=== PATIENT | female | born 1970 | race Caucasian/White ===

== ENCOUNTER 2016-12-24 06:48 | Day surgery (SDC) | payer BC ==
[2016-12-24] MEDS ORDERED: BUPIVACAINE 0.5% W/EPI MPF 30 ML VIAL IVP ONE (10:43)
[2016-12-24] MEDS ORDERED: BUPIVACAINE 0.25% MPF 30ML VIAL IVP ONE (10:43)
[2016-12-24] MEDS ORDERED: LIDOCAINE 1% W/EPI 1:200,000 MPF 30ML SQ ONE (10:43)
[2016-12-24] MEDS ORDERED: DEXAMETHASONE PRESERVATIVE FREE 10MG/ML VIAL IV ONE (10:43)
[2016-12-24] MEDS ORDERED: FENTANYL PF 100MCG/2ML VIAL IV ONE ×2 (14:00)
[2016-12-24] MEDS ORDERED: LIDOCAINE 2% MDV (20MG/ML) 20ML VIAL IV ONE (14:00)
[2016-12-24] MEDS ORDERED: ONDANSETRON HCL IV 4 MG/2 ML VIAL IVP ONE (14:00)
[2016-12-24] MEDS ORDERED: MIDAZOLAM HCL 2MG/2ML VIAL IV ONE ×2 (14:00)
[2016-12-24] MEDS ORDERED: PROPOFOL 10 MG/ML VIAL IV ONE ×2 (14:00)
[2016-12-24] MEDS ORDERED: MEPERIDINE 50 MG/1 ML VIAL IVP ONE (14:00)
[2016-12-24] MEDS ORDERED: *PACU ONLY* KETAMINE HCL 10 MG/ML (20ML) VIAL IV ONE ×2 (14:00)
--- NOTE | 2016-12-24 15:13 | Operative Note - Ferro ---
DATE OF SURGERY: 12/24/16 PREOPERATIVE DIAGNOSIS: LUMBAR RADICULITIS, ICD-10 CODE = M54.16 AND M54.17. OPERATION: FLUOROSCOPICALLY-GUIDED RIGHT TRANSFORAMINAL SELECTIVE SEGMENTAL INJECTION, L4-5 AND L5-S1. SURGEON: WES LOPEZ D.O. ANESTHESIA: LOCAL SEDATION. ANESTHESIA PROVIDER: CAROLYNE BETANCOURT CRNA. INDICATION: This patient presents with pain, which starts in the back but then extends into the hips and legs, right. Diagnostics show a 4-5 and a 5-1 disc. Current pattern of pain is both 4 and 5. PROCEDURE: Intravenous line, vital sign monitoring, IV sedation, prepped, draped, sterile technique. Lumbar foraminal opening on the right at 4-5 and 5-1 both identified, marked, and infiltrated. Two separate 20-gauge needles one in each foraminal opening. 5 mL of 0.125% Marcaine with Dexamethasone injected. Needle removed. Back cleaned. Topical antibiotics. Sterile dressing applied. We will monitor and evaluate. WES LOPEZ D.O. Date & Time cc: Dr. Joo Silverio JOB NUMBER: [id number] MTDD
== END 2016-12-24 08:35 | disposition home or self-care (01) ==
LOC: SUR 06:48
PROVIDERS: ATTEND Pain Medicine Interventional Pain Medicine
DX: M54.16 Radiculopathy, lumbar region (principal); M54.17 Radiculopathy, lumbosacral region; E11.9 Type 2 diabetes mellitus without complications; Z79.4 Long term (current) use of insulin; Z79.84 Long term (current) use of oral hypoglycemic drugs
CPT/HCPCS: 64483; 64484; 01935; 80048; 83036; 81025; Q9967; J2405; J1100; J3010

== ENCOUNTER 2017-03-04 07:24 | Day surgery (SDC) | payer BC ==
[~2017-03-04 07:24] MED LIST: FAMOTIDINE 20MG TABLET PO ONE; MECLIZINE 25 MG TABLET PO ONE; METOCLOPRAMIDE 10 MG TABLET PO ONE
[2017-03-04] MEDS ORDERED: 0.9 % SODIUM CHLORIDE 100ML BAG IV ONE (13:40)
[2017-03-04] MEDS ORDERED: BUPIVACAINE 0.5% W/EPI MPF 30 ML VIAL IVP ONE (13:40)
[2017-03-04] MEDS ORDERED: LIDOCAINE 1% W/EPI 1:200,000 MPF 30ML SQ ONE (13:40)
[2017-03-04] MEDS ORDERED: DEXAMETHASONE PRESERVATIVE FREE 10MG/ML VIAL IV ONE (13:40)
--- NOTE | 2017-03-04 15:25 | Operative Note - Ferro ---
DATE OF SURGERY: 03/04/17 PREOPERATIVE DIAGNOSIS: INTRACTABLE RADICULITIS, ICD-10 CODE = M54.16 AND 54.17. OPERATION: FLUOROSCOPICALLY-GUIDED BILATERAL TRANSFORAMINAL SELECTIVE SEGMENTAL EPIDURAL INJECTION L5/S1. SURGEON: WES LOPEZ D.O. ANESTHESIA: LOCAL SEDATION. ANESTHESIA PROVIDER: CAROLYNE BETANCOURT CRNA. INDICATION: This patient presents with leg pain. Examination showed tenderness lumbar spine. Range of motion causing pain across both legs. Diagnostics shows a primary 5/1 disc. PROCEDURE: Intravenous line, vital sign monitoring, IV sedation, prepped, draped, sterile technique. Under imaging, lumbar foraminal opening at 5/1 identified and marked bilaterally. Skin infiltrated. Two separate 20-gauge needles one at each foraminal opening. 5 mL of 0.125% Marcaine with Dexamethasone injected. Needle removed, back cleaned, topical antibiotic, and sterile dressing applied. We will monitor and evaluate. cc: Dr. Joo Silverio JOB NUMBER: [id number] MTDD
[2017-03-04] MEDS ORDERED: MIDAZOLAM HCL 2MG/2ML VIAL IV ONE (15:32)
[2017-03-04] MEDS ORDERED: FENTANYL PF 100MCG/2ML VIAL IV ONE (15:32)
[2017-03-04] MEDS ORDERED: PROPOFOL 10 MG/ML VIAL IV ONE (15:32)
[2017-03-04] MEDS ORDERED: LIDOCAINE 2% MDV (20MG/ML) 20ML VIAL IV ONE (15:32)
== END 2017-03-04 09:35 | disposition home or self-care (01) ==
LOC: SUR 07:24
PROVIDERS: ATTEND Pain Medicine Interventional Pain Medicine
DX: M54.16 Radiculopathy, lumbar region (principal); M54.17 Radiculopathy, lumbosacral region; E11.9 Type 2 diabetes mellitus without complications; Z79.84 Long term (current) use of oral hypoglycemic drugs; Z79.4 Long term (current) use of insulin
CPT/HCPCS: 64483; 01935; 36416; 82948; 81025; Q9967; J1100; J3010

== ENCOUNTER 2017-07-20 15:53 | Emergency (ER) | payer BC ==
[2017-07-20] MEDS ORDERED: 0.9 % SODIUM CHLORIDE 1,000 ML BAG IV ONE (16:14)
[2017-07-20] MEDS ORDERED: ONDANSETRON HCL IV 4 MG/2 ML VIAL IV ONE (16:14)
[2017-07-20] MEDS ORDERED: KETOROLAC 30 MG/ML VIAL IVP ONE (16:14)
[2017-07-20 16:29] LABS: BASO % 0.3 % (0-6); EOS % 2.1 % (0-6); GRAN % 45.6 % (47-80); HEMATOCRIT 40.1 % (35.0-47.0); HEMOGLOBIN 13.2 gm/dl (11.6-16.0); MEAN CELL VOLUME 88.1 fl (81-97); MEAN CORPUSCULAR HGB CONC 32.9 g/dl (32-36); MEAN PLATELET VOLUME 9.2 fl (7.4-10.4); PLATELET COUNT 435 K/uL (130-400); RED BLOOD COUNT 4.55 M/uL (3.80-5.40); RED CELL DISTRIBUTION WIDTH 12.2 % (11.5-14.5); WHITE BLOOD COUNT W/O DIFF 9.9 K/uL (4.2-12.2)
[2017-07-20 16:50] LABS: ALB/GLOB RATIO 1.2 (1.1-1.8); ALKALINE PHOSPHATASE 200 U/L (35-104); ALT/SGPT 30 U/L (<33); AST/SGOT 25 U/L (10.0-35.0); BLOOD UREA NITROGEN 13 mg/dL (6-20); CREATININE 0.5 mg/dL (0.5-0.9); EST GLOMERULAR FILTRATION RATE > 60 mL/min; GLUCOSE,RANDOM 362 mg/dL (74-109); LIPASE 26 U/L (13-60); TOTAL PROTEIN 7.3 g/dL (6.6-8.7)
[2017-07-20 17:36] LABS: URINE APPEARANCE CLEAR; URINE BILIRUBIN NEGATIVE (NEGATIVE); URINE BLOOD NEGATIVE (NEGATIVE); URINE COLOR YELLOW; URINE KETONE NEGATIVE (NEGATIVE); URINE LEUKOCYTE ESTERASE NEGATIVE (NEGATIVE); URINE NITRITE NEGATIVE (NEGATIVE); URINE PROTEIN NEGATIVE (NEGATIVE); URINE UROBILINOGEN 0.2 E.U./dL (0.20 - 1.00)
[2017-07-20 17:37] LABS: URINE GLUCOSE (UA) >=1000 mg/dL (NEGATIVE)
--- NOTE | 2017-07-20 17:43 | Emergency Department Record ---
History of Present Illness - General Chief Complaint: Back Pain/Injury Stated Complaint: LRQ BACK PAIN Time Seen by Provider: 07/20/17 16:08 Source: Patient Limitations: No limitations - History of Present Illness Initial Comments: pt has had r flank pain for 4 days which is getting progressively worse. Complaint: Other Onset/Timin -: Days(s) Similar Symptoms Previously: No Place: Home Radiation: None Severity: Moderate Severity scale (1-10): 3 Quality: Aching, Sharp, Stabbing Consistency: Constant, Intermittent Improves With: None Worsens With: None Context: Unknown Associated Symptoms: Denies other symptoms - Related Data Home Medications Medication Instructions Recorded Confirmed Last Taken Gabapentin [Neurontin] 300 mg PO BID 07/20/17 07/20/17 07/20/17 Hydrocodone/Acetaminophen [[place] 2 each PO QID 07/20/17 07/20/17 07/20/17 10-325 Tablet] Hydromorphone HCl [Dilaudid] 2 mg PO BID 07/20/17 07/20/17 07/20/17 Liraglutide [Victoza 2-Osmar] 0.6 mg SQ QHS 07/20/17 07/20/17 07/19/17 Metformin HCl [Metformin HCl] 1,000 mg PO BID 07/20/17 07/20/17 07/20/17 Allergies Allergy/AdvReac Type Severity Reaction Status Date / Time metronidazole [From Flagyl] Allergy Intermediate RASH Verified 07/20/17 16:06 NSAIDS (Non-Steroidal AdvReac Severe ABDOMINAL Verified 07/20/17 16:06 Anti-Inflamma PAIN Travel Screening - Travel/Exposure Within Last 30 Days Have you traveled within the last 30 days?: No Review of Systems Reviewed: No additional complaints except as noted below Constitutional: Reports: As per HPI. Denies: Chills, Fever, Malaise, Night sweats, Weakness, Weight change Eyes: Reports: As per HPI. Denies: Eye discharge, Eye pain, Photophobia, Vision change ENT: Reports: As per HPI. Denies: Congestion, Dental pain, Ear pain, Epistaxis , Hearing loss, Throat pain Respiratory: Reports: As per HPI. Denies: Cough, Dyspnea, Hemoptysis, Stridor, Wheezes Cardiovascular: Reports: As per HPI. Denies: Arrhythmia, Chest pain, Dyspnea on exertion, Edema, Murmurs, Orthopnea, Palpitations, Paroxysmal nocturnal dyspnea, Rheumatic Fever, Syncope Endocrine: Reports: As per HPI. Denies: Fatigue, Heat or cold intolerance, Polydipsia, Polyuria Gastrointestinal: Reports: As per HPI. Denies: Abdominal pain, Constipation, Diarrhea, Hematemesis, Hematochezia, Melena, Nausea, Vomiting Genitourinary: Reports: As per HPI. Denies: Abnormal menses, Discharge, Dyspareunia, Dysuria, Frequency, Hematuria, Incontinence, Retention, Urgency Musculoskeletal: Reports: As per HPI. Denies: Arthralgia, Back pain, Gout, Joint swelling, Myalgia, Neck pain Skin: Reports: As per HPI. Denies: Bruising, Change in color, Change in hair/ nails, Lesions, Pruritus, Rash Neurological: Reports: As per HPI. Denies: Abnormal gait, Confusion, Headache, Numbness, Paresthesias, Seizure, Tingling, Tremors, Vertigo, Weakness Psychiatric: Reports: As per HPI. Denies: Anxiety, Auditory hallucinations, Depression, Homicidal thoughts, Suicidal thoughts, Visual hallucinations Hematological/Lymphatic: Reports: As per HPI. Denies: Anemia, Blood Clots, Easy bleeding, Easy bruising, Swollen glands Past Medical History - SOCIAL HISTORY Smoking Status: Never smoker Alcohol Use: None Drug Use: None - RESPIRATORY Hx Respiratory Disorders: Yes Hx Pneumonia: Yes ( CHILD) - CARDIOVASCULAR Hx Cardio Disorders: No - NEURO Hx Neuro Disorders: No - GI Hx GI Disorders: Yes Hx Reflux: Yes - Hx Genitourinary Disorders: No - ENDOCRINE Hx Endocrine Disorders: Yes Hx Diabetes: Yes Comment:: DOES NOT CHECK BLOOD SUGARS - MUSCULOSKELETAL Hx Musculoskeletal Disorders: Yes Hx Arthritis: Yes (SPINE) Hx Fibromyalgia: Yes (MAY HAVE FIBROMYALGIA) - PSYCH Hx Psych Problems: No - HEMATOLOGY/ONCOLOGY Hx Hematology/Oncology Disorders: No Family Medical History Any Significant Family History?: Yes Hx Anxiety: Brother/Sister *Anxiety Comment: SISTER Hx Diabetes: Brother/Sister *Diabetes Comment: BROTHER & SISTER Physical Exam - General General Appearance: Alert, Oriented x3, Cooperative, Mild distress - Head Head exam: Normal inspection - Eye Eye exam: Normal appearance, PERRL, EOMI Pupils: Normal accommodation - ENT ENT exam: Normal exam, Mucous membranes moist, Normal external ear exam, Normal orophraynx Ear exam: Normal external inspection. negative: External canal tenderness Nasal Exam: Normal inspection. negative: Discharge, Sinus tenderness Mouth exam: Normal external inspection, Tongue normal Teeth exam: Normal inspection. negative: Dental caries Throat exam: Normal inspection. negative: Tonsillar erythema, Tonsillar exudate - Neck Neck exam: Normal inspection, Full ROM. negative: Tenderness - Respiratory Respiratory exam: Normal lung sounds bilaterally. negative: Respiratory distress - Cardiovascular Cardiovascular Exam: Regular rate, Normal rhythm, Normal heart sounds - GI/Abdominal GI/Abdominal exam: Soft, Normal bowel sounds. negative: Tenderness - Rectal Rectal exam: Deferred - exam: Deferred - Extremities Extremities exam: Normal inspection, Full ROM, Normal capillary refill. negative: Tenderness - Back Back exam: Reports: Normal inspection, CVA tenderness (R), Full ROM. Denies: Muscle spasm, Rash noted, Tenderness - Neurological Neurological exam: Alert, CN II-XII intact, Normal gait, Oriented X3 - Psychiatric Psychiatric exam: Normal affect, Normal mood - Skin Skin exam: Dry, Intact, Normal color, Warm Course Vital Signs 07/20/17 16:01 Temperature 97.7 F Pulse Rate 101 H Respiratory 20 Rate Blood Pressure 133/74 Pulse Ox 96 Medical Decision Making - Lab Data Result diagrams: 07/20/17 16:23 07/20/17 16:23 Lab Results 07/20/17 07/20/17 07/20/17 Range/Units 16:23 16:23 17:25 WBC 9.9 (4.2-12.2) K/uL RBC 4.55 (3.80-5.40) M/uL Hgb 13.2 (11.6-16.0) gm/dl Hct 40.1 (35.0-47.0) % MCV 88.1 (81-97) fl MCH 29.0 (27-33) pg MCHC 32.9 (32-36) g/dl RDW 12.2 (11.5-14.5) % Plt Count 435 H (130-400) K/uL MPV 9.2 (7.4-10.4) fl Gran % 45.6 L (47-80) % Lymphocytes % 46.0 H (16-45) % Monocytes % 6.0 (0-9) % Eosinophils % 2.1 (0-6) % Basophils % 0.3 (0-6) % Sodium 133 L (136-145) mmol/L Potassium 3.6 (3.4-4.5) mmol/L Chloride 94 L (98-107) mmol/L Carbon Dioxide 25.0 (22-29) mmol/L Anion Gap 14.0 (7-16) BUN 13 (6-20) mg/dL Creatinine 0.5 (0.5-0.9) mg/dL Estimated GFR > 60 mL/min Random Glucose 362 H (74-109) mg/dL Calcium 9.2 (8.6-10.0) mg/dL Total Bilirubin 0.30 (0.2-1.0) mg/dL AST 25 (10.0-35.0) U/L ALT 30 (<33) U/L Alkaline Phosphatase 200 H (35-104) U/L Total Protein 7.3 (6.6-8.7) g/dL Albumin 4.0 (4.0-5.0) g/dL Globulin 3.3 (1.4-4.8) gm/dL Albumin/Globulin Ratio 1.2 (1.1-1.8) Lipase 26 (13-60) U/L Urine Color Yellow Urine Appearance Clear Urine pH 5.0 (5.0-8.0) Ur Specific [place] 1.025 (1.002-1.030) Urine Protein Negative (NEGATIVE) Urine Glucose (UA) >=1000 mg/dl H (NEGATIVE) Urine Ketones Negative (NEGATIVE) Urine Blood Negative (NEGATIVE) Urine Nitrite Negative (NEGATIVE) Urine Bilirubin Negative (NEGATIVE) Urine Urobilinogen 0.2 (0.20 - 1.00) E.U./dL Ur Leukocyte Esterase Negative (NEGATIVE) Disposition Disposition: Discharge Clinical Impression: Flank pain, Hyperglycemia Disposition: Home, Self-Care Condition: (1) Good Instructions: Flank Pain (ED) Additional Instructions: follow up with family doctor tomorrow. return sooner if worse. monitor blood sugars Forms: Patient Portal Access Quality - Quality Measures Quality Measures: N/A - Blood Pressure Screening Does Patient Have Any of the Following: No Blood Pressure Classification: Pre-Hypertensive BP Reading Systolic Measurement: 133 Diastolic Measurement: 74 Screening for High Blood Pressure: < Pre-Hypertensive BP, F/U Documented > [ G8950] Pre-Hypertensive Follow-up Interventions: Follow-up with rescreen every year.
--- NOTE | 2017-07-21 10:04 | CT SCAN REPORT ---
EXAM: CT OF THE ABDOMEN AND PELVIS WITHOUT CONTRAST HISTORY: RIGHT LOWER ABDOMEN/FLANK PAIN FOR APPROXIMATELY FOUR DAYS. TECHNIQUE: Thin collimation helical CT examination of the abdomen and pelvis was performed without oral or intravenous contrast administration for the express purpose of evaluating the renal collecting systems for obstructing calculi. Lack of oral and IV contrast utilization limits evaluation of the bowel and solid viscera respectively. Comparison: CT of the abdomen without and with contrast dated 02/16/12. FINDINGS: There is minimal linear scarring versus atelectasis in the anterior lung bases. The visualized lung bases are otherwise clear and there is no pleural or pericardial effusion. The heart is not enlarged. The liver is mildly decreased in density relative to the spleen consistent with steatosis. No suspicious focal hepatic lesion is, however, identified. The gallbladder is surgically absent and no biliary ductal dilatation is seen. The pancreas, spleen, adrenal glands, and kidneys are normal in appearance. No intraabdominal nor retroperitoneal lymphadenopathy is seen. No definite pelvic mass. No lymphadenopathy. No free pelvic fluid. The uterus is in the midline. No intrinsic urinary bladder abnormality is identified. There is no evidence of obstructive uropathy. The urinary bladder lumen appears slightly increased in density measuring 31 Hounsfield units as does the proximal renal collecting systems. Correlate with urinalysis for the presence of blood. This may just relate to concentrated urine. No gross bowel dilatation nor bowel wall thickening is seen. The appendix is surgically absent. The vasculature as visualized is unremarkable. No lytic or blastic bone lesion is seen. There are degenerative changes scattered throughout the visualized spine. IMPRESSION: 1. NO EVIDENCE OF NEPHROLITHIASIS NOR OBSTRUCTIVE UROPATHY. THE URINARY BLADDER LUMEN AND PROXIMAL RENAL COLLECTING SYSTEMS APPEAR SLIGHTLY INCREASED IN DENSITY. CORRELATE WITH URINALYSIS TO EXCLUDE HEMATURIA. THIS MAY JUST RELATE TO CONCENTRATED URINE. 2. NO CONVINCING CT EVIDENCE OF AN ACUTE INTRAABDOMINAL NOR INTRAPELVIC PROCESS. 3. STATUS POST CHOLECYSTECTOMY AND APPENDECTOMY. 4. HEPATIC STEATOSIS. JOB NUMBER: [id number] AND [id number] [facility]
== END 2017-07-20 18:27 | disposition home or self-care (01) ==
LOC: ER 15:53
DX: M54.5 Low back pain (principal); E11.65 Type 2 diabetes mellitus with hyperglycemia; Z79.84 Long term (current) use of oral hypoglycemic drugs
CPT/HCPCS: 36416; 74176; 80053; 81003; 82948; 83690; 85025; 96361; 96374; 96375; 99284; J1885; J2405; J7030

== ENCOUNTER 2018-12-24 10:05 | Day surgery (SDC) | payer BC ==
[2018-12-24] MEDS ORDERED: MIDAZOLAM HCL 2MG/2ML VIAL IV ONE (10:06)
[2018-12-24] MEDS ORDERED: PROPOFOL 10 MG/ML VIAL IV ONE (10:06)
[2018-12-24] MEDS ORDERED: LIDOCAINE 2% MDV (20MG/ML) 20ML VIAL IV ONE (10:06)
--- NOTE | 2018-12-27 09:30 | Operative Note ---
DATE OF SURGERY: 12/24/2018 SURGEON: Laila Martin MD OPERATION: COLONOSCOPY. INDICATIONS: This is a 48-year-old female with average risk for colorectal cancer who presented for screening colonoscopy. POSTOPERATIVE DIAGNOSIS: Grossly normal colon with no neoplasm or ulcerative lesions. ANESTHESIA: Sedation is per Anesthesia. Pulse oximetry was monitored throughout the procedure to maintain O2 saturation of 90% or greater. Supplemental oxygen was administered via nasal cannula. Cardiac and vital signs were monitored throughout the duration of the procedure, and they were stable. The procedure of colonoscopy and risks and alternatives of the procedure, including the risk of bleeding and perforation, among others, were explained to the patient who voiced understanding and agreed to have the procedure done. Physical examination was performed, and the patient was found stable for sedation. PROCEDURE: The patient was placed in the left lateral position. Sedation was initiated. A digital rectal exam was performed and showed some mild external hemorrhoids with no palpable rectal masses. An Olympus PCF-180AL colonoscope was then inserted into the rectum under direct visualization. It was advanced to the cecum without difficulty. The ileocecal valve and appendiceal orifice were identified and photographed. The colonic mucosa was carefully examined upon introduction of the colonoscope. The bowel preparation was suboptimal but enough to rule out any significant lesions. The colonoscope was then withdrawn while carefully examining the colonic mucosal surfaces. No other lesions were noted. In the rectum, retroflexion was performed and grade 1 internal hemorrhoids were noted. The colonoscope was then withdrawn and the procedure was terminated. The patient tolerated the procedure well without any immediate complications. The patient remained with stable vital signs and was transferred to the recovery room. RECOMMENDATIONS: 1. The patient should be on a high-fiber diet. 2. The patient is to have a repeat colonoscopy for screening in 5 years given the suboptimal prep. Thank you for allowing me to participate in the care of your patient. CC: YUMI BLACKMAN MD, FACP [facility]
== END 2018-12-24 12:40 | disposition home or self-care (01) ==
LOC: HOP 10:05
PROVIDERS: ATTEND Internal Medicine Gastroenterology
DX: Z12.11 Encounter for screening for malignant neoplasm of colon (principal); E11.9 Type 2 diabetes mellitus without complications
CPT/HCPCS: 00812; 81025; G0121

== ENCOUNTER 2019-01-05 11:29 | Emergency (ER) | payer BC ==
--- NOTE | 2019-01-05 12:07 | Emergency Department Record ---
History of Present Illness - General Chief Complaint: Abdominal Pain Stated Complaint: LEFT SIDED ABDOMINAL PAIN Time Seen by Provider: 01/05/19 12:01 Mode of Arrival: Ambulatory - History of Present Illness Initial Comments: left sided abdominal pain which started yesterday and nauseated and diarrhea times two 2 days ago ,no vomiting PSH appendectomy and gall bladder and D and c and multiple laproscopes. Chronic low back pain and on narcotics and NSAID causes nausea. Onset/Timin -: Days(s) Location: Q Radiation: None Migration to: No migration Severity: Moderate Severity scale (1-10): 7 Quality: Dull, Sharp Consistency: Constant, Intermittent Improves With: Nothing Worsens With: Movement Associated Symptoms: Denies other symptoms - Related Data Patient : No Home Medications Medication Instructions Recorded Confirmed Last Taken Dulaglutide [Trulicity] 1.5 mg SQ WEEKLY 01/05/19 01/05/19 01/05/19 Eszopiclone 2 mg PO ASDIR 01/05/19 01/05/19 01/05/19 Pregabalin [Lyrica] 50 mg PO TID 01/05/19 01/05/19 01/05/19 Previous Rx's Medication Instructions Recorded Amoxicillin/Potassium Clav 1 each PO TID #30 tablet 01/05/19 [Augmentin 500-125 Tablet] Dicyclomine HCl [Bentyl] 10 mg PO Q8H #30 cap 01/05/19 Allergies Allergy/AdvReac Type Severity Reaction Status Date / Time metronidazole [From Flagyl] Allergy Intermediate RASH Verified 01/05/19 11:47 NSAIDS (Non-Steroidal AdvReac Severe ABDOMINAL Verified 01/05/19 11:47 Anti-Inflamma PAIN Travel Screening - Travel/Exposure Within Last 30 Days Have you traveled within the last 30 days?: No - Travel/Exposure Within Last Year Have you traveled outside the [place] in the last year?: No - Additonal Travel Details Have you been exposed to anyone with a communicable illness?: No - Travel Symptoms Symptom Screening: None Review of Systems Reviewed: No additional complaints except as noted below Constitutional: Reports: As per HPI. Denies: Chills, Fever, Malaise, Night sweats, Weakness, Weight change Eyes: Reports: As per HPI. Denies: Eye discharge, Eye pain, Photophobia, Vision change ENT: Reports: As per HPI. Denies: Congestion, Dental pain, Ear pain, Epistaxis , Hearing loss, Throat pain Respiratory: Reports: As per HPI. Denies: Cough, Dyspnea, Hemoptysis, Stridor, Wheezes Cardiovascular: Reports: As per HPI. Denies: Arrhythmia, Chest pain, Dyspnea on exertion, Edema, Murmurs, Orthopnea, Palpitations, Paroxysmal nocturnal dyspnea, Rheumatic Fever, Syncope Endocrine: Reports: As per HPI. Denies: Fatigue, Heat or cold intolerance, Polydipsia, Polyuria Gastrointestinal: Reports: As per HPI, Abdominal pain. Denies: Constipation, Diarrhea, Hematemesis, Hematochezia, Melena, Nausea, Vomiting Genitourinary: Reports: As per HPI. Denies: Abnormal menses, Discharge, Dyspareunia, Dysuria, Frequency, Hematuria, Incontinence, Retention, Urgency Musculoskeletal: Reports: As per HPI. Denies: Arthralgia, Back pain, Gout, Joint swelling, Myalgia, Neck pain Skin: Reports: As per HPI. Denies: Bruising, Change in color, Change in hair/ nails, Lesions, Pruritus, Rash Neurological: Reports: As per HPI. Denies: Abnormal gait, Confusion, Headache, Numbness, Paresthesias, Seizure, Tingling, Tremors, Vertigo, Weakness Psychiatric: Reports: As per HPI. Denies: Anxiety, Auditory hallucinations, Depression, Homicidal thoughts, Suicidal thoughts, Visual hallucinations Hematological/Lymphatic: Reports: As per HPI. Denies: Anemia, Blood Clots, Easy bleeding, Easy bruising, Swollen glands Past Medical History - SOCIAL HISTORY Smoking Status: Never smoker Alcohol Use: Rare Drug Use: None - RESPIRATORY Hx Respiratory Disorders: Yes Hx Pneumonia: Yes ( CHILD) - CARDIOVASCULAR Hx Cardio Disorders: Yes Hx Palpitations: Yes (fast heartbeat, wore holter monitor and everything was ok) Comment:: . - NEURO Hx Neuro Disorders: Yes Hx of Migraines: Yes - GI Hx GI Disorders: Yes Hx Diverticulitis: Yes Hx Reflux: Yes - Hx Genitourinary Disorders: No Comment:: pre-menopause - ENDOCRINE Hx Endocrine Disorders: Yes Hx Diabetes: Yes Comment:: DOES NOT CHECK BLOOD SUGARS - MUSCULOSKELETAL Hx Musculoskeletal Disorders: Yes Hx Arthritis: Yes (SPINE) Hx Fibromyalgia: Yes (MAY HAVE FIBROMYALGIA) - PSYCH Hx Psych Problems: No - HEMATOLOGY/ONCOLOGY Hx Hematology/Oncology Disorders: Yes Hx Anemia: Yes Family Medical History Any Significant Family History?: Yes Hx Anxiety: Brother/Sister *Anxiety Comment: SISTER Hx Diabetes: Brother/Sister *Diabetes Comment: BROTHER & SISTER Physical Exam - General General Appearance: Alert, Oriented x3, Cooperative, No acute distress - Head Head exam: Normal inspection - Eye Eye exam: Normal appearance, PERRL Pupils: Normal accommodation - ENT ENT exam: Normal exam, Mucous membranes moist, Normal external ear exam, Normal orophraynx, TM's normal bilaterally Ear exam: Normal external inspection. negative: External canal tenderness Nasal Exam: Normal inspection. negative: Discharge, Sinus tenderness Mouth exam: Normal external inspection, Tongue normal Teeth exam: Normal inspection. negative: Dental caries Throat exam: Normal inspection. negative: Tonsillar erythema, Tonsillar exudate - Neck Neck exam: Normal inspection, Full ROM. negative: Tenderness - Respiratory Respiratory exam: Normal lung sounds bilaterally. negative: Respiratory distress - Cardiovascular Cardiovascular Exam: Regular rate, Normal rhythm, Normal heart sounds - GI/Abdominal GI/Abdominal exam: Soft, Normal bowel sounds, Tenderness (left lower quad) - Rectal Rectal exam: Deferred - exam: Deferred - Extremities Extremities exam: Normal inspection, Full ROM, Normal capillary refill. negative: Tenderness - Back Back exam: Reports: Normal inspection, Full ROM. Denies: Muscle spasm, Rash noted, Tenderness - Neurological Neurological exam: Alert, Normal gait, Oriented X3, Reflexes normal - Psychiatric Psychiatric exam: Normal affect, Normal mood - Skin Skin exam: Dry, Intact, Normal color, Warm Course Vital Signs 01/05/19 11:55 Temperature 98.3 F Pulse Rate 84 Respiratory 20 Rate Blood Pressure 134/82 Pulse Ox 98 Medical Decision Making - Data Complexity MDM Data: Labs Ordered and/or Reviewed, X-Ray Ordered and/or Reviewed (CT diverticulosis ) - Lab Data Result diagrams: 01/05/19 11:55 01/05/19 11:55 Disposition Clinical Impression: Diverticulitis Abdominal pain Qualifiers: Abdominal location: left lower quadrant Qualified Code(s): R10.32 - Left lower quadrant pain Disposition: Home, Self-Care Condition: (1) Good Instructions: Diverticulitis (ED) Additional Instructions: low fiber diet follow up with family Dr in one week Dr. Silverio of [facility] take augmentin three times a day Prescriptions: Amoxicillin/Potassium Clav [Augmentin 500-125 Tablet] 1 each PO TID #30 tablet Dicyclomine HCl [Bentyl] 10 mg PO Q8H #30 cap Forms: Patient Portal Access Time of Disposition: 14:54 Quality - Quality Measures Quality Measures: N/A - Blood Pressure Screening Does Patient Have Any of the Following: No Blood Pressure Classification: Pre-Hypertensive BP Reading Systolic Measurement: 134 Diastolic Measurement: 82 Screening for High Blood Pressure: < Pre-Hypertensive BP, F/U Documented > [ G8950] Pre-Hypertensive Follow-up Interventions: Referral to alternative/primary care provider.
[2019-01-05] MEDS: KETOROLAC 30 MG/ML VIAL IVP ONE (12:16)
[2019-01-05] MEDS: 0.9 % SODIUM CHLORIDE 1,000 ML BAG IV ONE (12:17)
[2019-01-05 12:32] LABS: BASO % 0.4 % (0-6); EOS % 1.9 % (0-6); GRAN % 59.4 % (47-80); HEMATOCRIT 42.4 % (35.0-47.0); HEMOGLOBIN 14.1 gm/dl (11.6-16.0); LYMPH % 32.1 % (16-45); MEAN CORPUSCULAR HEMOGLOBIN 29.9 pg (27-33); MEAN CORPUSCULAR HGB CONC 33.3 g/dl (32-36); MEAN PLATELET VOLUME 9.9 fl (7.4-10.4); MONO % 6.2 % (0-9); PLATELET COUNT 467 K/uL (130-400); RED BLOOD COUNT 4.71 M/uL (3.80-5.40); RED CELL DISTRIBUTION WIDTH 12.4 % (11.5-14.5); WHITE BLOOD COUNT W/O DIFF 11.3 K/uL (4.2-12.2)
[2019-01-05 12:33] LABS: URINE APPEARANCE SL CLOUDY; URINE BILIRUBIN NEGATIVE (NEGATIVE); URINE BLOOD NEGATIVE (NEGATIVE); URINE COLOR YELLOW; URINE KETONE TRACE (NEGATIVE); URINE LEUKOCYTE ESTERASE TRACE (NEGATIVE); URINE NITRITE NEGATIVE (NEGATIVE); URINE PROTEIN NEGATIVE (NEGATIVE); URINE UROBILINOGEN 0.2 E.U./dL (0.20 - 1.00)
[2019-01-05 12:47] LABS: URINE RBC NONE SEEN (NONE SEEN); URINE WBC 0 - 2 (0-2/hpf)
[2019-01-05 12:48] LABS: HCG,QUALITATIVE URINE NEGATIVE (NEGATIVE)
[2019-01-05 12:50] LABS: BLOOD UREA NITROGEN 11 mg/dL (6-20); CREATININE 0.5 mg/dL (0.5-0.9); EST GLOMERULAR FILTRATION RATE > 60 mL/min
[2019-01-05 12:51] LABS: LIPASE 33 U/L (13-60); TOTAL PROTEIN 7.3 g/dL (6.6-8.7)
[2019-01-05 12:53] LABS: GLUCOSE,RANDOM 210 mg/dL (74-109)
[2019-01-05 12:55] LABS: ALT/SGPT 12 U/L (<33)
[2019-01-05 12:56] LABS: ALBUMIN 4.1 g/dL (4.0-5.0); ALKALINE PHOSPHATASE 112 U/L (35-104); AST/SGOT 23 U/L (10.0-35.0)
[2019-01-05 12:57] LABS: BILIRUBIN,DIRECT < 0.2 mg/dL (0-0.3)
--- NOTE | 2019-01-07 09:22 | CT SCAN REPORT ---
EXAM: NONCONTRAST CT OF THE ABDOMEN AND PELVIS HISTORY: NAUSEA, LEFT SIDED ABDOMINAL PAIN. HISTORY OF DIVERTICULITIS. PRIOR CHOLECYSTECTOMY AND APPENDECTOMY. TECHNIQUE: Noncontrast CT of the abdomen and pelvis was obtained. Comparison: CT of the abdomen and pelvis 07/20/17. FINDINGS: The lung bases are clear. Hepatic steatosis. The gallbladder is surgically absent. Unremarkable appearance of the spleen, adrenal glands and pancreas. No hydronephrosis or intrarenal calculi. Mild descending and sigmoid colon diverticulosis without evidence of acute diverticulitis. No focal colonic thickening or inflammation. The stomach and small bowel are nondilated. No free air or free fluid. Unremarkable appearance of the urinary bladder. No intrapelvic mass identified. The abdominal aorta is minimally calcified, but nondilated. No acute osseous findings. Degenerative changes in the spine and hips. IMPRESSION: 1. NO ACUTE FINDINGS IN THE ABDOMEN OR PELVIS. 2. COLONIC DIVERTICULOSIS WITHOUT EVIDENCE OF ACUTE DIVERTICULITIS. 3. HEPATIC STEATOSIS. JOB [facility]BER: [id number] [facility]
== END 2019-01-05 15:06 | disposition home or self-care (01) ==
LOC: ER 11:29
DX: K57.92 Diverticulitis of intestine, part unspecified, without perforation or abscess without bleeding (principal); R10.32 Left lower quadrant pain; R11.0 Nausea; R19.7 Diarrhea, unspecified
CPT/HCPCS: 74176; 80048; 80076; 81001; 81025; 83690; 85025; 96361; 96374; 99284; J1885; J7030

== ENCOUNTER 2019-08-05 10:02 | Emergency (ER) | payer BC ==
[2019-08-05] MEDS ORDERED: CLINDAMYCIN 150 MG CAP PO ONE (10:14)
--- NOTE | 2019-08-05 10:18 | Emergency Department Record ---
History of Present Illness - General Chief complaint: Dental Stated complaint: LEFT SIDE DENTAL PAIN/SWELLING Time Seen by Provider: 08/05/19 10:07 Source: Patient Mode of Arrival: Ambulatory Limitations: No limitations - History of Present Illness Initial comments: The patient is her due to L upper dental pain for the third day today. She had a filling fall out a month ago and then 2 days ago she began to have pain over that area and swelling to her cheek. The patient denies any fever, chills, vomiting, or ST but is having L facial pain. She does have a dentist but has not been able to contact them. The patient is a Diabetic and takes oral medicines. She states her blood sugars have been controlled recently. MD complaint: Tooth pain Onset/Timin -: Days(s) Location: Tooth # Severity: Moderate Severity scale (1-10): 7 Quality: Aching Consistency: Constant Improves with: None Worsens with: None - Related Data Previous Rx's Medication Instructions Recorded Dicyclomine HCl [Bentyl] 10 mg PO Q8H #30 cap 01/05/19 Clindamycin HCl [Cleocin HCl] 300 mg PO QID #28 capsule 08/05/19 Allergies Allergy/AdvReac Type Severity Reaction Status Date / Time metronidazole [From Flagyl] Allergy Intermediate RASH Verified 08/05/19 10:09 NSAIDS (Non-Steroidal AdvReac Severe ABDOMINAL Verified 08/05/19 10:09 Anti-Inflamma PAIN Travel Screening - Travel/Exposure Within Last 30 Days Have you traveled within the last 30 days?: No Review of Systems Constitutional: Denies: Chills, Fever Past Medical History - SOCIAL HISTORY Smoking Status: Never smoker Alcohol Use: None Drug Use: None - RESPIRATORY Hx Respiratory Disorders: Yes Hx Pneumonia: Yes ( CHILD) - CARDIOVASCULAR Hx Cardio Disorders: Yes Hx Palpitations: Yes (fast heartbeat, wore holter monitor and everything was ok) Comment:: . - NEURO Hx Neuro Disorders: Yes Hx of Migraines: Yes - GI Hx GI Disorders: Yes Hx Diverticulitis: Yes Hx Reflux: Yes - Hx Genitourinary Disorders: No Comment:: pre-menopause - ENDOCRINE Hx Endocrine Disorders: Yes Hx Diabetes: Yes Comment:: DOES NOT CHECK BLOOD SUGARS - MUSCULOSKELETAL Hx Musculoskeletal Disorders: Yes Hx Arthritis: Yes (SPINE) Hx Fibromyalgia: Yes (MAY HAVE FIBROMYALGIA) - PSYCH Hx Psych Problems: No - HEMATOLOGY/ONCOLOGY Hx Hematology/Oncology Disorders: Yes Hx Anemia: Yes Family Medical History Any Significant Family History?: Yes Hx Anxiety: Brother/Sister *Anxiety Comment: SISTER Hx Diabetes: Brother/Sister *Diabetes Comment: BROTHER & SISTER Physical Exam - General General Appearance: Alert, Oriented x3, Cooperative, No acute distress - Head Head exam: Atraumatic, Normocephalic Image of Face/Head: 1 - Area of mild swelling and mod tenderness. - Eye Eye exam: Normal appearance, PERRL, EOMI. negative: Conjunctival injection - ENT ENT exam: negative: Normal exam (There is mild swelling to the L maxillary area with tenderness over the L upper molars.) Teeth exam: Dental caries, Dental tenderness # (The number 14 and 15 teeth are painful. There is tenderness at the gum line but no focal abscess to drain.). negative: Normal inspection Throat exam: Normal inspection. negative: Tonsillar erythema, Tonsillar exudate - Neck Neck exam: Normal inspection, Full ROM. negative: Tenderness - Respiratory Respiratory exam: Normal lung sounds bilaterally. negative: Respiratory distress - Cardiovascular Cardiovascular Exam: Regular rate, Normal rhythm, Normal heart sounds Course Vital Signs 08/05/19 10:07 Temperature 97.8 F Pulse Rate 78 Respiratory 20 Rate Blood Pressure 119/72 Pulse Ox 96 - Reevaluation(s) Reevaluation #1: I did explain the need to see her Dentist or contact an oral surgeon for further evaluation. 08/05/19 10:31 Disposition Disposition: Discharge Clinical Impression: Abscess, dental Disposition: Home, Self-Care Condition: (2) Stable Instructions: Dental Abscess (ED) Additional Instructions: Please use ice to the painful area and continue the Clindamycin. Please alternate Tylenol with Motrin (taken with food) every 3-4 hours. You may also substitute Kinsman for the Tylenol. Please see your Dentist DEMETRIO and return to the ER for any worsening swelling, pain, fever, or difficulty swallowing. Please return to the ER tomorrow for any worsening symptoms. Prescriptions: Clindamycin HCl [Cleocin HCl] 300 mg PO QID #28 capsule Forms: Patient Portal Access Time of Disposition: 10:33 Quality - Quality Measures Quality Measures: N/A - Blood Pressure Screening View Details: Yes Does Patient Have Any of the Following: No Blood Pressure Classification: Normal BP Reading Systolic Measurement: 119 Diastolic Measurement: 72 Screening for High Blood Pressure: < Normal BP, F/U Not Required > [[id number]]
[2019-08-05] MEDS ORDERED: KETOROLAC 30 MG/ML VIAL IM ONE (10:43)
[2019-08-05] MEDS ORDERED: CEFTRIAXONE 1 GRAM VIAL IM ONE (10:57)
== END 2019-08-05 11:33 | disposition home or self-care (01) ==
LOC: ER 10:02
DX: K04.7 Periapical abscess without sinus (principal)
CPT/HCPCS: 96372; 99283; J1885